=== PATIENT | male | born 1995 | race Hispanic/Latino ===

== ENCOUNTER 2020-02-17 15:56 | Inpatient (IN) | payer SELFPAY ==
[~2020-02-17] VITALS: Ht 170.2 cm; Wt 54.0 kg
[2020-02-17 16:10] VITALS: BP 118/49; PULSE 65; RESP 18; TEMP 98.3
[2020-02-17] MEDS ORDERED: MAG HYDROX/AL HYDROX/SIMETH ES 30 ML SUSP UDCUP PO PRN (18:00)
[2020-02-17] MEDS ORDERED: ACETAMINOPHEN 325 MG TAB PO PRN ×2 (18:00)
[2020-02-17] MEDS ORDERED: NITROGLYCERIN 0.4 MG SL TAB SL PRN (18:00)
[2020-02-17] MEDS ORDERED: ONDANSETRON HCL 4 MG/2 ML VIAL IV PRN (18:00)
[2020-02-17] MEDS ORDERED: GUAIFENESIN-DM 200/20 MG 10 ML PO PRN (18:00)
[2020-02-17] MEDS ORDERED: CHLORDIAZEPOXIDE HCL 25 MG CAP PO PRN ×2 (18:00)
[2020-02-17] MEDS ORDERED: POTASSIUM CHLORIDE 10% ELIXIR 20 MEQ/15 ML UDCUP PO PRN ×2 (18:00→21:45)
[2020-02-17] MEDS ORDERED: PHARMACY COMMUNICATION MISC PRN (18:00)
[2020-02-17] MEDS ORDERED: LORAZEPAM 2 MG/ML 1 ML VIAL IVP PRN ×2 (18:00)
[2020-02-17] MEDS ORDERED: DiphenhydrAMINE HCL 50 MG/ML VIAL IV PRN (18:00)
[2020-02-17] MEDS ORDERED: POTASSIUM CHLORIDE 20MEQ/100ML 100 ML IV PRN ×3 (18:00→21:45)
[2020-02-17] MEDS ORDERED: DIPHENHYDRAMINE HCL 25 MG CAPSULE PO PRN (18:00)
[2020-02-17] MEDS ORDERED: LACTULOSE 20 GM/30 ML UDCUP PO PRN (18:00)
--- NOTE | 2020-02-17 18:18 | NUR ---
CONSULTED DR CLEMENT FOR GI BLEEDING. PENDING CALL BACK.
[2020-02-17 19:37] VITALS: BP 113/52; PULSE 55; RESP 20; TEMP 97.6
[2020-02-17] MEDS ORDERED: PEG 3350/NA SULF,BICARB,CL/KCL 4000 ML SOLN PO SCH (19:45)
[2020-02-17] MEDS: PANTOPRAZOLE SODIUM 80 MG in SODIUM CHLORIDE 0.9% 100 ML IV SCH (19:57)
[2020-02-17] MEDS: NICOTINE 7 MG/ 24 HR PATCH TD SCH (19:57)
[2020-02-17] MEDS: LACTATED RINGERS 1000ML 1,000 ML IV SCH (19:57)
--- NOTE | 2020-02-17 20:00 | NUR ---
spoke with dr. shahab hanks and he will do a colonoscopy with egd and mac at noon 02/18/20. he ordered goletely and labs in the am. patient was bathed at 05:00. no further issues.
[2020-02-17] MEDS ORDERED: LIDOCAINE HCL-MPF 1% 2ML VIAL IV PRN (21:45)
[2020-02-17] MEDS ORDERED: POTASSIUM CHLORIDE 20 MEQ ERTAB PO PRN (21:45)
[2020-02-17] MEDS: POTASSIUM CHLORIDE 20 MEQ ERTAB PO PRN (23:29)
[2020-02-17 23:39] VITALS: BP 117/73; PULSE 81; RESP 20; TEMP 98.1
[2020-02-18] VITALS (13 sets, daily range): BP systolic 88–121; BP diastolic 36–69; PULSE 54–92; RESP 16–20; TEMP 97.5–98.6
[2020-02-18] MEDS: POTASSIUM CHLORIDE 20 MEQ ERTAB PO PRN ×2 (00:40→03:46)
[2020-02-18] MEDS: LACTATED RINGERS 1000ML 1,000 ML IV SCH ×2 (03:46→18:03)
[2020-02-18] MEDS: PANTOPRAZOLE SODIUM 80 MG in SODIUM CHLORIDE 0.9% 100 ML IV SCH (04:00)
[2020-02-18] MEDS: POTASSIUM CHLORIDE 20MEQ/100ML 100 ML IV PRN ×2 (05:42→10:20)
[2020-02-18] MEDS: LIDOCAINE HCL-MPF 1% 2ML VIAL IV PRN ×2 (05:42→10:20)
--- NOTE | 2020-02-18 06:05 | NUR ---
patient drank all the goletely and has stooled approximately 10 times light brown. spoke with boardinghouse keeper, tamir, and his procedure will be done at noon.
[2020-02-18] MEDS: NICOTINE 7 MG/ 24 HR PATCH TD SCH (10:19)
[2020-02-18] MEDS ORDERED: PROPOFOL 10 MG/ML 20ML VIAL IV ONE (11:40)
[2020-02-18] MEDS ORDERED: LIDOCAINE HCL 2% 20ML ONE (11:41)
[2020-02-18] MEDS ORDERED: GLYCOPYRROLATE 0.2 MG/ML 5 ML VIAL ONE (11:41)
--- NOTE | 2020-02-18 11:42 | NUR ---
DCP CM met with pt discussed dc plans. Pt is independent prior to admission, lives at home alone. Denies any equipments/services. Feels safe to go back home, still drives and works, mother able to assist with transportation as necessary. DC plan to home once stable. CM to cont to follow up. Addendum: 02/18/20 at 1143 by JULY COTO LVN CM Amended: Links added.
[2020-02-19 00:08] VITALS: BP 93/50; PULSE 67; RESP 18; TEMP 98
[2020-02-19 03:34] VITALS: BP 97/51; PULSE 57; RESP 18; TEMP 98.2
[2020-02-19] MEDS: POTASSIUM CHLORIDE 20 MEQ ERTAB PO PRN ×2 (05:27→08:44)
[2020-02-19 07:51] VITALS: BP 101/56; PULSE 56; RESP 16; TEMP 97.5
[2020-02-19] MEDS: NICOTINE 7 MG/ 24 HR PATCH TD SCH (08:51)
[2020-02-19 11:18] VITALS: BP 106/69; PULSE 66; RESP 16; TEMP 97.9
== END 2020-02-19 11:40 | disposition home or self-care (01) | DRG 378 ==
LOC: 3CH 15:56 → UNDOADMIN 15:56 → 3AH 15:57
PROVIDERS: ADMIT Family Medicine; ATTEND Family Medicine
PROC: 0DJ08ZZ Inspection of Upper Intestinal Tract, Via Natural or Artificial Opening Endoscopic (ICD-10-PCS; principal; 2020-02-18)
PROC: 0DJD8ZZ Inspection of Lower Intestinal Tract, Via Natural or Artificial Opening Endoscopic (ICD-10-PCS; 2020-02-18)
DX: K92.2 Gastrointestinal hemorrhage, unspecified (principal); D62 Acute posthemorrhagic anemia; K64.0 First degree hemorrhoids; K21.0 Gastro-esophageal reflux disease with esophagitis; K31.89 Other diseases of stomach and duodenum; F10.10 Alcohol abuse, uncomplicated; F17.210 Nicotine dependence, cigarettes, uncomplicated